=== PATIENT | female | born 1990 | race African-American/Black ===

== ENCOUNTER 2020-09-11 00:02 | Emergency (ER) | payer MEDICARE ==
[~2020-09-11] VITALS: Ht 149.9 cm; Wt 75.0 kg
[2020-09-11 00:56] LABS: EOSINOPHILS % 7.2 % (0.0-5.0); HEMATOCRIT. 34.9 % (36.0-48.0); HEMOGLOBIN. 10.7 g/dL (12.0-16.0); LYMPHOCYTES % 35.5 % (20.0-50.0); MEAN CORPUSCULAR HEMOGLOBIN 22.4 pg (28.0-32.0); MEAN CORPUSCULAR VOLUME 72.9 fL (81.0-99.0); MEAN PLATELET VOLUME 8.9 fl (7.4-10.4); MONOCYTES % 6.8 % (2.0-8.0); NEUTROPHILS % 49.5 % (40.0-76.0); PLATELET 347 x1000/uL (130-400); RED BLOOD CELL COUNT 4.79 mill/uL (4.2-5.4); RED CELL DISTRIBUTION WIDTH 29.6 % (11.6-14.6)
[2020-09-11 00:59] LABS: CHLORIDE 107 mEq/L (98-107)
[2020-09-11 01:10] LABS: CLARITY URINE CLOUDY (CLEAR); COLOR URINE RED (YELLOW); KETONES URINE NEGATIVE (NEGATIVE); LEUKOCYTE ESTERASE URINE 1+ (NEGATIVE); NITRITE URINE NEGATIVE (NEGATIVE); OCCULT BLOOD URINE 3+ (NEGATIVE); PROTEIN URINE 1+ (NEGATIVE); SPECIFIC GRAVITY URINE 1.023 (1.005-1.030); UROBILINOGEN URINE 0.2 E.U./dL (0.2-1.0)
[2020-09-11 01:11] LABS: B-HCG QUANTITATIVE 21 mIU/mL (<3)
[2020-09-11] MEDS ORDERED: NITR100C PO (02:00)
[2020-09-11 02:23] VITALS: BP 120/81
[2020-09-11 03:47] LABS: PLATELET ESTIMATE NORMAL
== END 2020-09-11 02:24 | disposition home or self-care (01) ==
LOC: ER 00:02
DX: O20.0 Threatened abortion (principal); O23.31 Infections of other parts of urinary tract in pregnancy, first trimester; Z3A.01 Less than 8 weeks gestation of pregnancy
CPT/HCPCS: 36415; 76830; 76856; 80053; 81003; 81025; 84702; 85025; 86850; 86900; 99284

== ENCOUNTER 2021-05-13 16:09 | Emergency (ER) | payer MEDICAID, MEDICARE ==
[~2021-05-13] VITALS: Ht 149.9 cm; Wt 77.0 kg
[~2021-05-13 16:09] MED LIST: NITR100C PO
[2021-05-13] MEDS ORDERED: OFLO5DRO4 RIGHT EAR (16:49)
[2021-05-13] MEDS ORDERED: IBUP-2028 MT (16:49)
[2021-05-13 16:57] VITALS: BP 136/74
== END 2021-05-13 17:00 | disposition home or self-care (01) ==
LOC: ER 16:09
DX: S09.21XA Traumatic rupture of right ear drum, initial encounter (principal); Y04.2XXA Assault by strike against or bumped into by another person, initial encounter; Y93.89 Activity, other specified; Y92.89 Other specified places as the place of occurrence of the external cause
CPT/HCPCS: 99282; 99283

== ENCOUNTER 2023-10-09 15:22 | Emergency (ER) | payer MEDICAID, MEDICARE ==
[~2023-10-09] VITALS: Ht 149.9 cm; Wt 78.0 kg
[~2023-10-09 15:22] MED LIST changes: +IBUP-2028 MT; +OFLO5DRO4 RIGHT EAR
[2023-10-09 15:32] VITALS: O2SAT 100
[2023-10-09 17:09] LABS: BASOPHILS % 0.6 % (0.0-2.0); EOSINOPHILS % 4.7 % (0.0-5.0); HEMATOCRIT. 34.3 % (36.0-48.0); HEMOGLOBIN. 10.7 g/dL (12.0-16.0); LYMPHOCYTES % 25.2 % (20.0-50.0); MEAN CORPUSCULAR HEMOGLOBIN 23.3 pg (28.0-32.0); MEAN CORPUSCULAR HGB CONC 31.3 g/dL (31.0-37.0); MEAN CORPUSCULAR VOLUME 74.6 fL (81.0-99.0); MEAN PLATELET VOLUME 8.1 fl (7.4-10.4); MONOCYTES % 8.1 % (2.0-8.0); NEUTROPHILS % 61.4 % (40.0-76.0); PLATELET 381 x1000/uL (130-400); RED CELL DISTRIBUTION WIDTH 22.5 % (11.6-14.6); WHITE BLOOD COUNT 7.1 x1000/uL (4.5-11.0)
[2023-10-09 17:11] LABS: ADD RBC MORPHOLOGY YES; DIFFERENTIAL COMMENT 1
[2023-10-09 17:16] LABS: HCG SCREEN NEGATIVE
[2023-10-09 17:18] LABS: CHLORIDE 105 mEq/L (98-107); SODIUM 138 mEq/L (136-145)
[2023-10-09 17:19] LABS: CARBON DIOXIDE 28 mEq/L (21-32)
[2023-10-09 17:20] LABS: CALCIUM 9.1 mg/dL (8.7-10.4)
[2023-10-09 17:24] LABS: GLUCOSE 77 mg/dL (70-105); UREA NITROGEN BLOOD 12 mg/dL (9-23)
[2023-10-09 17:26] LABS: HYPOCHROMASIA 1+; MICROCYTOSIS 1+; PLATELET ESTIMATE NORMAL
[2023-10-09 18:52] VITALS: BP 131/68; PULSE 100; RESP 16; TEMP 98.2
== END 2023-10-09 19:13 | disposition home or self-care (01) ==
LOC: ER 15:22
DX: N93.8 Other specified abnormal uterine and vaginal bleeding (principal); Z98.890 Other specified postprocedural states
CPT/HCPCS: 36415; 76830; 76856; 80048; 84703; 85025; 86850; 86900; 99284

== ENCOUNTER 2024-04-22 14:22 | Emergency (ER) | payer OTHER ==
[~2024-04-22] VITALS: Ht 149.9 cm; Wt 76.0 kg
[2024-04-22 14:32] VITALS: BP 129/78; PULSE 75; RESP 16; TEMP 37; O2SAT 100
[2024-04-22 15:42] LABS: CLARITY URINE CLEAR (CLEAR); COLOR URINE YELLOW (YELLOW); GLUCOSE URINE NEGATIVE (NEGATIVE); KETONES URINE NEGATIVE (NEGATIVE); LEUKOCYTE ESTERASE URINE NEGATIVE (NEGATIVE); NITRITE URINE NEGATIVE (NEGATIVE); OCCULT BLOOD URINE NEGATIVE (NEGATIVE); PH URINE 6.5 (4.5-8.0); PROTEIN URINE NEGATIVE (NEGATIVE); SPECIFIC GRAVITY URINE 1.012 (1.005-1.030)
[2024-04-22 17:37] LABS: HEMATOCRIT. 31.9 % (36.0-48.0); HEMOGLOBIN. 9.1 g/dL (12.0-16.0); MEAN CORPUSCULAR HEMOGLOBIN 19.2 pg (28.0-32.0); MEAN CORPUSCULAR HGB CONC 28.5 g/dL (31.0-37.0); MEAN CORPUSCULAR VOLUME 67.4 fL (81.0-99.0); PLATELET 421 x1000/uL (130-400); RED BLOOD CELL COUNT 4.73 mill/uL (4.2-5.4); RED CELL DISTRIBUTION WIDTH 18.9 % (11.6-14.6); WHITE BLOOD COUNT 7.6 x1000/uL (4.5-11.0)
[2024-04-22 17:41] LABS: DIFFERENTIAL COMMENT 1
[2024-04-22 17:57] LABS: HCG SCREEN NEGATIVE
[2024-04-22] MEDS ORDERED: IBUPROFEN 400MG TABLET PO ONE (18:30)
[2024-04-22] MEDS ORDERED: IBUP-2028 MT (18:31)
[2024-04-22 19:19] LABS: ANISOCYTOSIS 1+; PLATELET ESTIMATE INCREASED
[2024-04-22 19:20] LABS: HYPOCHROMASIA 2+; MICROCYTOSIS 3+
== END 2024-04-22 21:05 | disposition home or self-care (01) ==
LOC: ER 14:28
DX: N83.202 Unspecified ovarian cyst, left side (principal); R10.2 Pelvic and perineal pain; Z98.890 Other specified postprocedural states
CPT/HCPCS: 36415; 76830; 76856; 81003; 84703; 85025; 93976; 99284